=== PATIENT | male | born 1955 | race Caucasian/White ===

== ENCOUNTER 2016-12-07 00:36 | Emergency (ER) | payer BC ==
[~2016-12-07] VITALS: Ht 170.2 cm; Wt 86.5 kg
[~2016-12-07 00:36] MED LIST: ADULT LOW DOSE81 M1 PO; AUGMENTIN875 MG PO; Ascorbic Acid,Ester- PO; CELEBREX50 MG PO; CIALIS2.5 MG PO; Colace PO; FIBER TABS625 MG PO; Fish Oil PO; NEXIUM20 MG PO; NIASPAN,SLO-N1000 MG PO; PRAVACHOL20 MG PO; Pyridoxine,Vitamin B PO; Tums PO; Vitamin B Complex PO
[2016-12-07] MEDS ORDERED: PERCOCET 5/31 TABLET PO (02:23)
[2016-12-07 03:00] VITALS: BP 154/89
== END 2016-12-07 03:11 | disposition home or self-care (01) ==
LOC: EME 00:36
PROC: 0PSJXZZ Reposition Left Radius, External Approach (ICD-10-PCS; principal; 2016-12-07)
DX: S52.502A Unspecified fracture of the lower end of left radius, initial encounter for closed fracture (principal); W00.0XXA Fall on same level due to ice and snow, initial encounter
CPT/HCPCS: 73080; 73100; 73110; 99281; 99285; J2270; J2405; J7030